=== PATIENT | male | born 1945 | race American Indian/Alaskan Native ===

== ENCOUNTER 2017-10-15 09:27 | Outpatient (CLI) | payer MEDICARE ==
--- NOTE | 2017-10-15 23:44 | XRay Report ---
FINAL REPORT PROCEDURE: Lumbar spine. TECHNIQUE: Five views. HISTORY: BACK PAIN COMPARISON: No prior studies are available for comparison. FINDINGS: The lumbar vertebrae have normal height and alignment. There are no fractures. There is no spondylolysis. There is no spondylolisthesis. There is moderate disc space narrowing at L4-5 and L5-S1. There are vertebral body osteophytes in the lower cervical spine. The sacrum and sacroiliac joints appear normal. There is minimal calcification in the abdominal aorta. IMPRESSION: Degenerative disc disease at L4-5 and L5-S1.
== END 2017-10-15 09:28 | disposition home or self-care (01) ==
LOC: XRAY 09:27
PROVIDERS: ATTEND Internal Medicine
DX: M51.37 Other intervertebral disc degeneration, lumbosacral region (principal); I70.0 Atherosclerosis of aorta; I10 Essential (primary) hypertension
CPT/HCPCS: 72110

== ENCOUNTER 2021-05-29 12:49 | Emergency (ER) | payer MEDICARE ==
[2021-05-29] MEDS ORDERED: ACETAMINOPHEN 500 MG TAB PO ONE (13:42)
--- NOTE | 2021-05-29 14:10 | Emergency Department Report ---
<SHEBA SOTO - Last Filed: 05/29/21 14:11> ED Male HPI - General Chief complaint: Pain General Stated complaint: GROIN PAIN Time Seen by Provider: 05/29/21 13:32 Source: patient Mode of arrival: Ambulatory Limitations: No Limitations - History of Present Illness Initial comments: cc: groin pain HPI: This is a 76-year-old male with history of chronic hiccups, hiatal hernia, hypertension who presents with left groin pain for 2 weeks. Moderate pain in left groin radiating to the left back. Pain improves with ice pack. He denies hematuria, vomiting, dysuria. Patient does not feel a bulge. No previous history of hernia. Patient has had unintentional weight loss of approximately 15 to 20 pounds. attributes weight loss to chronic hiccups. Patient has had endoscopy. Has not had a recent colonoscopy. He did have Cologauard cancer screening. MD Complaint: groin pain (Left groin pain) -: Gradual, week(s) (2 weeks ago) Severity: moderate Severity scale (0 -10): 7 Quality: aching, sharp Consistency: constant Improves with: other (Ice pack) Worsens with: movement, other (Straining, hiccups) denies other symptoms - Related Data Home Medications Medication Instructions Recorded Confirmed Last Taken Cetirizine HCl [Allergy Relief] 10 mg PO PRN PRN 08/23/13 08/23/13 08/22/13 Furosemide [Lasix] 20 mg PO DAILY 08/23/13 08/23/13 08/22/13 Guaifenesin/Phenylephrine HCl 1 tab PO Q6H PRN 08/23/13 08/23/13 08/22/13 [Mucus Relief Sinus Tablet] Losartan [Cozaar] 50 mg PO BID 08/23/13 08/23/13 08/22/13 Potassium Chloride [K-Dur] 20 meq PO DAILY 08/23/13 08/23/13 08/22/13 Terazosin (Nf) [Hytrin (Nf)] 1 mg PO DAILY 08/23/13 08/23/13 08/22/13 allopurinoL [Zyloprim] 300 mg PO QDAY 08/23/13 08/23/13 08/22/13 calcitrioL [Rocaltrol] 0.25 mcg PO DAILY 08/23/13 08/23/13 08/22/13 hydrALAZINE [Apresoline] 100 mg PO Q12H 08/23/13 08/23/13 08/22/13 Allergies Allergy/AdvReac Type Severity Reaction Status Date / Time No Known Allergies Allergy Verified 05/29/21 13:14 ED Review of Systems Comment: All other systems reviewed and negative Constitutional: other (15 to 20 pound unintentional weight loss). denies: chills, fever, malaise Cardiovascular: denies: chest pain Gastrointestinal: denies: abdominal pain, nausea, vomiting Genitourinary: denies: urgency, dysuria, frequency, hematuria, discharge, testicular pain, testicular mass ED Past Medical Hx - Past Medical History Previous Medical History?: Yes Hx Hypertension: Yes Hx CVA: Yes Additional medical history: high cholesterol. gout - Surgical History Past Surgical History?: Yes Additional Surgical History: right hand surgery@ age 6. Tonsils removed @ early age - Social History Smoking Status: Never Smoker Substance Use Type: None - Medications Home Medications: Home Medications Medication Instructions Recorded Confirmed Last Taken Type Cetirizine HCl [Allergy Relief] 10 mg PO PRN PRN 08/23/13 08/23/13 08/22/13 History Furosemide [Lasix] 20 mg PO DAILY 08/23/13 08/23/13 08/22/13 History Guaifenesin/Phenylephrine HCl 1 tab PO Q6H PRN 08/23/13 08/23/13 08/22/13 History [Mucus Relief Sinus Tablet] Losartan [Cozaar] 50 mg PO BID 08/23/13 08/23/13 08/22/13 History Potassium Chloride [K-Dur] 20 meq PO DAILY 08/23/13 08/23/13 08/22/13 History Terazosin (Nf) [Hytrin (Nf)] 1 mg PO DAILY 08/23/13 08/23/13 08/22/13 History allopurinoL [Zyloprim] 300 mg PO QDAY 08/23/13 08/23/13 08/22/13 History calcitrioL [Rocaltrol] 0.25 mcg PO DAILY 08/23/13 08/23/13 08/22/13 History hydrALAZINE [Apresoline] 100 mg PO Q12H 08/23/13 08/23/13 08/22/13 History ED Physical Exam - General Limitations: No Limitations General appearance: alert, in no apparent distress - Head Head exam: Present: atraumatic, normocephalic - Eye Eye exam: Present: normal appearance - ENT ENT exam: Present: mucous membranes moist - Neck Neck exam: Present: normal inspection, full ROM - Respiratory Respiratory exam: Present: normal lung sounds bilaterally. Absent: respiratory distress, wheezes, rales, rhonchi - Cardiovascular Cardiovascular Exam: Present: regular rate, normal rhythm, normal heart sounds. Absent: systolic murmur, diastolic murmur, rubs, gallop - GI/Abdominal GI/Abdominal exam: Present: soft, normal bowel sounds. Absent: distended, tenderness, guarding, rebound - Rectal Rectal exam: Present: deferred - exam: Present: normal inspection, other (Uncircumcised). Absent: testicular tenderness, urethral discharge, scrotal swelling, vertical testicular lie External exam: Present: normal external exam, other (No palpable hernia). Absent: erythema, swelling, lesions, lacerations, ecchymosis, bleeding - Extremities Exam Extremities exam: Present: normal inspection - Neurological Exam Neurological exam: Present: alert, oriented X3 - Psychiatric Psychiatric exam: Present: normal affect, normal mood - Skin Skin exam: Present: warm, dry, intact, normal color. Absent: rash ED Disposition Clinical Impression: Left groin pain Disposition: HOME / SELF CARE / HOMELESS Condition: Stable Instructions: Abdominal Pain, Adult Referrals: PRIMARY CARE,MD [Primary Care Provider] - 3-5 Days <CARLOS COLEMAN - Last Filed: 05/29/21 21:20> ED Review of Systems ROS: Stated complaint: GROIN PAIN Other details as noted in HPI ED Course Vital Signs 05/29/21 13:15 Temperature 98.6 F Pulse Rate 76 Respiratory 20 Rate Blood Pressure 186/98 O2 Sat by Pulse 97 Oximetry ED Medical Decision Making - Lab Data Result diagrams: 05/29/21 14:34 05/29/21 14:34 - Radiology Data Radiology results: report reviewed - Medical Decision Making HPI: This is a 76-year-old male with history of chronic hiccups, hiatal hernia, hypertension who presents with left groin pain for 2 weeks. Moderate pain in left groin radiating to the left back. Pain improves with ice pack. He denies hematuria, vomiting, dysuria. Patient does not feel a bulge. No previous history of hernia. Patient has had unintentional weight loss of approximately 15 to 20 pounds. attributes weight loss to chronic hiccups. Patient has had endoscopy. Has not had a recent colonoscopy. He did have Colorectal cancer screening. Patient received Tylenol in the ER and stated that it helped him a lot. Labs reviewed and is unremarkable. CT abdomen and pelvis is negative for acute finding except for hiatal hernia. Patient pain is most likely musculoskeletal however patient strongly advised to follow-up with his primary doctor in the next 2 to 3 days and to return to the ER if he develop any new symptoms. Critical care attestation.: If time is entered above; I have spent that time in minutes in the direct care of this critically ill patient, excluding procedure time. ED Disposition Is pt being admited?: No
[2021-05-29 15:00] LABS: Basophils # (Auto) 0.1 K/mm3 (0.0-0.1); Basophils % (Auto) 0.9 % (0.0-1.8); Eosinophils # (Auto) 0.1 K/mm3 (0.0-0.4); Eosinophils % (Auto) 1.1 % (0.0-4.3); Hematocrit 40.3 % (35.5-45.6); Hemoglobin 13.2 gm/dl (11.8-15.2); Lymphocytes # (Auto) 1.2 K/mm3 (1.2-5.4); Lymphocytes % (Auto) 20.4 % (13.4-35.0); Mean Corpuscular HGB Conc 33 % (32-34); Mean Corpuscular Volume 94 fl (84-94); Monocytes # (Auto) 0.4 K/mm3 (0.0-0.8); Monocytes % (Auto) 6.6 % (0.0-7.3); Platelet Count 250 K/mm3 (140-440); Red Blood Count 4.27 M/mm3 (3.65-5.03); Red Cell Distribution Width 13.6 % (13.2-15.2)
[2021-05-29 15:26] LABS: Alanine Aminotransferase 10 units/L (7-56); Albumin 4.1 g/dL (3.9-5); BUN/Creatinine Ratio 9; Blood Urea Nitrogen 10 mg/dL (9-20); Hemolysis Index 4
--- NOTE | 2021-05-29 20:44 | Cat Scan Report ---
CT ABDOMEN AND PELVIS WITH CONTRAST INDICATION: left groin pain CONTRAST: 100 cc Omnipaque 300 IV COMPARISON: None available. All CT scans at this location are performed using CT dose reduction for ALARA by means of automated e xposure control. FINDINGS: Lung bases are clear. No pneumoperitoneum is seen. I see no abnormalities of the gallbladde r, bile ducts, pancreas, spleen, or adrenals. Liver shows mild fatty infiltration but is not signific antly enlarged and shows no focal lesions. No urinary obstructive changes are seen. Minimal left keyla l cyst is noted. No lymphadenopathy is seen. No free fluid is noted. No evidence of bowel obstruction is seen. No inflammatory changes are noted. Appendix is clearly visualized. No pelvic masses are see n. Prostate is prominently enlarged and impinges on the base of the bladder but no intrinsic bladder abnormality is seen. Vesicles appear within normal limits. Small hiatal hernia is seen. A small fatty left inguinal hernia is noted. No bowel enters the hernia and no inflammation is seen. IMPRESSION: No acute abnormalities are seen Signer Name: Brian Maurer MD Signed: 05/29/2021 8:40 PM Workstation Name: [id number]
[2021-05-29 21:37] VITALS: BP 189/94
== END 2021-05-29 21:41 | disposition home or self-care (01) ==
LOC: ED 12:49
DX: R10.32 Left lower quadrant pain (principal); I10 Essential (primary) hypertension; E78.00 Pure hypercholesterolemia, unspecified; Z79.899 Other long term (current) drug therapy
CPT/HCPCS: 36415; 74177; 80053; 85025; 99284; Q9967